=== PATIENT | female | born 1940 | race African-American/Black ===

== ENCOUNTER 2016-10-11 09:49 | Outpatient (CLI) | payer MEDICARE ==
[~2016-10-11] VITALS: Ht 149.9 cm; Wt 39.5 kg
[~2016-10-11 09:49] MED LIST: ALENDRONATE SOD70 MG PO; ARICEPT10 MG PO; DITROPAN X10 MG/BOTT PO; FERROUS SULFAT325 MG PO; PRINIVIL20 MG PO; VITAMIN D250000 UNIT PO
[2016-10-11] MEDS ORDERED: NAMENDA5 MG PO (11:15)
[2016-10-11 11:19] VITALS: BP 142/71; Ht 149.9 cm; Wt 39.5 kg
--- NOTE | 2016-10-11 11:30 | NUR ---
1126-60MG OF PROLIA INJECTION IN RIGHT ARM SUBQ PT TOLERATED WELL LOT# [id number] EXP: 11/28 DISCHARGE INSTRUCTIONS GIVEN AND WENT OVER PT AND DAUGHTER COPY HANDED TO HER WITH A INFORMATION PACKET GIVEN. PT AND DAUGHTER STATE UNDERSTANDING AND DENIES ANY NEED OR CONCERNS AT THIS TIME. PT DISCHARGED HOME IN STBLE CONDITION WITHOUT ANY DISTRESS NOTED
== END 2016-10-11 11:33 | disposition home or self-care (01) ==
LOC: D.OPS 09:49
DX: M81.0 Age-related osteoporosis without current pathological fracture (principal)

== ENCOUNTER → 2017-04-16 11:36 | Outpatient (CLI) | payer MEDICARE ==
[~2017-04-16 11:36] MED LIST changes: +NAMENDA5 MG PO
[2017-04-16 12:54] VITALS: BP 135/70; Ht 149.9 cm
== END | disposition home or self-care (01) ==
LOC: D.OPS 11:36
DX: M81.0 Age-related osteoporosis without current pathological fracture (principal)

== ENCOUNTER 2017-10-16 11:23 | Outpatient (CLI) | payer MEDICARE ==
[~2017-10-16] VITALS: Ht 149.9 cm; Wt 44.5 kg
[2017-10-16 13:08] VITALS: BP 115/49; Ht 149.9 cm; Wt 44.5 kg
== END 2017-10-16 13:15 | disposition home or self-care (01) ==
LOC: D.OPS 11:23
DX: M81.0 Age-related osteoporosis without current pathological fracture (principal)

== ENCOUNTER 2018-05-22 11:48 | Outpatient (CLI) | payer MEDICARE ==
[~2018-05-22] VITALS: Ht 149.9 cm; Wt 40.9 kg
[2018-05-22 12:29] VITALS: BP 179/79; Ht 149.9 cm; Wt 40.9 kg
== END 2018-05-22 12:47 | disposition home or self-care (01) ==
LOC: D.OPS 11:48
DX: M81.0 Age-related osteoporosis without current pathological fracture (principal); Z01.812 Encounter for preprocedural laboratory examination

== ENCOUNTER → 2018-11-04 13:34 | Outpatient (CLI) | payer MEDICARE ==
[~2018-11-04] VITALS: Ht 149.9 cm; Wt 36.4 kg
[2018-11-04 14:37] VITALS: BP 152/71; Ht 149.9 cm; Wt 36.4 kg
== END | disposition home or self-care (01) ==
LOC: D.OPS 13:00
PROVIDERS: ATTEND Family Medicine
DX: M81.0 Age-related osteoporosis without current pathological fracture (principal)

== ENCOUNTER 2019-05-20 13:15 | Outpatient (CLI) | payer MEDICARE ==
[~2019-05-20] VITALS: Ht 121.9 cm; Wt 41.8 kg
[2019-05-20 14:02] VITALS: BP 163/61; Ht 121.9 cm; Wt 41.8 kg
== END 2019-05-20 14:15 | disposition home or self-care (01) ==
LOC: D.OPS 13:15
PROVIDERS: ATTEND Family Medicine
DX: M81.0 Age-related osteoporosis without current pathological fracture (principal)

== ENCOUNTER 2020-01-14 12:36 | Outpatient (CLI) | payer MEDICARE ==
[~2020-01-14] VITALS: Ht 144.8 cm; Wt 36.4 kg
[2020-01-14 13:04] VITALS: BP 197/83; Ht 144.8 cm; Wt 36.4 kg
== END 2020-01-14 13:22 | disposition home or self-care (01) ==
LOC: D.OPS 12:36
PROVIDERS: ATTEND Nurse Practitioner Family
DX: M81.0 Age-related osteoporosis without current pathological fracture (principal)

== ENCOUNTER 2020-01-19 12:12 | Outpatient (CLI) | payer MEDICARE ==
[~2020-01-19] VITALS: Ht 144.8 cm; Wt 38.6 kg
[2020-01-19 12:58] VITALS: Ht 144.8 cm; Wt 38.6 kg
== END 2020-01-19 13:05 | disposition home or self-care (01) ==
LOC: D.OPS 12:12
PROVIDERS: ATTEND Family Medicine
DX: M81.0 Age-related osteoporosis without current pathological fracture (principal)

== ENCOUNTER 2020-03-11 18:34 | Emergency (ER) | payer MEDICARE ==
[~2020-03-11] VITALS: Ht 144.8 cm; Wt 40.4 kg
[2020-03-11 19:05] VITALS: Ht 144.8 cm; Wt 40.4 kg
[2020-03-11 19:47] LABS: BASOPHILS 0.1 % (0-2); EOSINOPHILS 1.3 % (0-7); HEMATOCRIT 37.6 % (36.0-48.0); HEMOGLOBIN 11.6 g/dL (12-16); IMMATURE GRANULOCYTES 0.3 % (0-5); LYMPHOCYTES 9.3 % (15-50); MCH 27.6 pg (26.0-34.0); MCHC 30.9 g/dL (31.0-37.0); MCV 89.3 fL (80.0-100.0); MEAN PLATELET VOLUME 9.1 fL (7.4-10.4); MONOCYTES 7.4 % (2-11); NEUTROPHILS 81.6 % (40-80); PLATELET COUNT 98 10x3/uL (130-400); RBC 4.21 10x6/uL (4.00-5.40); RDW 14.9 % (11.5-14.5); WBC 7.6 10x3/uL (4.8-10.8)
[2020-03-11 20:03] LABS: CALC OSMOLALITY 277 mosm/kg (275-300); CARBON DIOXIDE 31.8 mmol/L (21.0-32.0); CHLORIDE - SERUM 103 mmol/L (98-107); GLUCOSE 99 mg/dL (74-106); POTASSIUM - SERUM 4.2 mmol/L (3.5-5.1); SODIUM 138 mmol/L (136-145); UREA NITROGEN 18 mg/dL (7-18); eGFR NON AFRICAN AMERICAN 56 mL/min (90-120)
[2020-03-11 20:17] LABS: ALBUMIN 3.4 g/dL (3.4-5.0); ALKALINE PHOSPHATASE 59 U/L (30-120); ALT (SGPT) 17 U/L (10-68); BILIRUBIN - TOTAL 0.52 mg/dL (0.2-1.3); THYROID STIMULATING HORMONE 1.26 uIU/mL (0.36-3.74)
[2020-03-11 20:21] LABS: TROPONIN-I < 0.017 ng/mL (0.000-0.060)
[2020-03-11] MEDS ORDERED: BACTRIM DS TAB1 EAC1 PO (21:52)
[2020-03-12 00:15] VITALS: BP 132/69
== END 2020-03-12 00:15 | disposition home or self-care (01) ==
LOC: D.ER 18:34
PROVIDERS: Family Medicine
DX: L03.317 Cellulitis of buttock (principal); L02.31 Cutaneous abscess of buttock; C54.1 Malignant neoplasm of endometrium; I10 Essential (primary) hypertension; F03.90 Unspecified dementia, unspecified severity, without behavioral disturbance, psychotic disturbance, mood disturbance, and anxiety

== ENCOUNTER 2020-04-24 21:29 | Emergency (ER) | payer MEDICARE ==
[~2020-04-24] VITALS: Ht 144.8 cm; Wt 38.6 kg
[~2020-04-24 21:29] MED LIST changes: +BACTRIM DS TAB1 EAC1 PO
[2020-04-24 21:39] VITALS: Ht 144.8 cm; Wt 38.6 kg
[2020-04-24 22:27] LABS: BASOPHILS 0 % (0-2); EOSINOPHILS 0 % (0-7); HEMATOCRIT 39.8 % (36.0-48.0); HEMOGLOBIN 12.6 g/dL (12-16); IMMATURE GRANULOCYTES 0.1 % (0-5); LYMPHOCYTES 18.4 % (15-50); MCH 27.6 pg (26.0-34.0); MCHC 31.7 g/dL (31.0-37.0); MCV 87.3 fL (80.0-100.0); MEAN PLATELET VOLUME 8.8 fL (7.4-10.4); MONOCYTES 8.9 % (2-11); NEUTROPHILS 72.6 % (40-80); RBC 4.56 10x6/uL (4.00-5.40); RDW 14.1 % (11.5-14.5); WBC 7.2 10x3/uL (4.8-10.8)
[2020-04-24 22:28] LABS: PLATELET COUNT 137 10x3/uL (130-400)
[2020-04-24 22:28] LABS: BILIRUBIN NEGATIVE (NEGATIVE); KETONE NEGATIVE (NEGATIVE); NITRITE NEGATIVE (NEGATIVE); UROBILINOGEN NORMAL mg/dL (< 2)
[2020-04-24 22:44] LABS: CALC OSMOLALITY 267 mosm/kg (275-300); CALCIUM 9.8 mg/dL (8.5-10.1); CARBON DIOXIDE 30.2 mmol/L (21.0-32.0); CHLORIDE - SERUM 98 mmol/L (98-107); CREATININE - SERUM 0.9 mg/dL (0.6-1.3); GLUCOSE 116 mg/dL (74-106); SODIUM 132 mmol/L (136-145); UREA NITROGEN 19 mg/dL (7-18); eGFR NON AFRICAN AMERICAN 64 mL/min (90-120)
[2020-04-24 22:48] LABS: ALBUMIN 3.3 g/dL (3.4-5.0); ALKALINE PHOSPHATASE 54 U/L (30-120); ALT (SGPT) 13 U/L (10-68); AMYLASE - SERUM 161 U/L (25-115); BILIRUBIN - TOTAL 0.54 mg/dL (0.2-1.3); LIPASE 84 U/L (73-393); PROTEIN - SERUM 8.9 g/dL (6.4-8.2); TROPONIN-I < 0.017 ng/mL (0.000-0.060)
[2020-04-25 01:11] VITALS: BP 164/91
== END 2020-04-25 01:11 | disposition home or self-care (01) ==
LOC: D.ER 21:29
PROVIDERS: Emergency Medicine
DX: R41.82 Altered mental status, unspecified (principal); E86.0 Dehydration; I10 Essential (primary) hypertension; F03.90 Unspecified dementia, unspecified severity, without behavioral disturbance, psychotic disturbance, mood disturbance, and anxiety

== ENCOUNTER 2020-05-02 22:54 | Inpatient (IN) | payer MEDICARE ==
[~2020-05-02] VITALS: Ht 144.8 cm; Wt 36.3 kg
[2020-05-02 23:40] LABS: BILIRUBIN NEGATIVE (NEGATIVE); KETONE NEGATIVE (NEGATIVE); NITRITE NEGATIVE (NEGATIVE); UROBILINOGEN NORMAL mg/dL (< 2)
[2020-05-02 23:41] LABS: BACTERIA MODERATE HPF (NONE SEEN); EPITHELIAL CELLS 0-5 /hpf (0-5); WHITE CELLS - URINE 0-5 HPF (0-4)
[2020-05-02 23:43] LABS: HEMATOCRIT 45.4 % (36.0-48.0); HEMOGLOBIN 13.6 g/dL (12-16); LYMPHOCYTES 8.6 % (15-50); MCH 26.7 pg (26.0-34.0); MCV 89.2 fL (80.0-100.0); MEAN PLATELET VOLUME 8.9 fL (7.4-10.4); NEUTROPHILS 84.2 % (40-80); RBC 5.09 10x6/uL (4.00-5.40); RDW 14.3 % (11.5-14.5); WBC 11.7 10x3/uL (4.8-10.8)
[2020-05-02 23:48] LABS: PLATELET COUNT 196 10x3/uL (130-400)
[2020-05-02 23:53] LABS: CALC OSMOLALITY 299 mosm/kg (275-300); CALCIUM 11.4 mg/dL (8.5-10.1); CARBON DIOXIDE 33.2 mmol/L (21.0-32.0); CHLORIDE - SERUM 108 mmol/L (98-107); CREATININE - SERUM 1.3 mg/dL (0.6-1.3); GLUCOSE 137 mg/dL (74-106); POTASSIUM - SERUM 3.9 mmol/L (3.5-5.1); SODIUM 145 mmol/L (136-145); UREA NITROGEN 38 mg/dL (7-18); eGFR NON AFRICAN AMERICAN 42 mL/min (90-120)
[2020-05-03] VITALS (8 sets, daily range): BP systolic 136–198; BP diastolic 66–110; Ht 144.8 cm; Wt 36.3 kg
[2020-05-03 00:08] LABS: ALBUMIN 3.4 g/dL (3.4-5.0); ALKALINE PHOSPHATASE 58 U/L (30-120); ALT (SGPT) 13 U/L (10-68); BILIRUBIN - TOTAL 0.45 mg/dL (0.2-1.3); CKMB 0.5 U/L (0.0-3.6); CREATINE KINASE 37 UL (21-215); LIPASE 227 U/L (73-393); PROTEIN - SERUM 9.5 g/dL (6.4-8.2); TROPONIN-I 0.057 ng/mL (0.000-0.060)
--- NOTE | 2020-05-03 04:00 | NUR ---
PATIENT ARRIVED ON THE FLOOR VIA BED FROM ER. NO S/S OF ACUTE DISTRESS. NO C/O AT THIS TIME. PATIENT SHAKES HEAD BACK AND FORTH UPON TOUCH. SHE DOESN'T TALK NOR OPEN HER EYES THOUGH. IV IS IN RIGHT FOREARM, NORMAL SALINE @ 125 ML/HR. IV IS PATENT WITHOUT REDNESS, SWELLING, OR TENDERNESS. PATIENT MOUTH IS MISSING TEETH, SWOLLEN GUMS, AND PATIENT DAUGHTER SAID THAT SHE HAS DUG OUT HER TEETH BEFORE. PATIENT IS INCONTINENT. CALL LIGHT WITHIN REACH. BED ALARM ON. WILL CONTINUE TO MONITOR.
[2020-05-03 05:45] LABS: BASOPHILS 0.1 % (0-2); EOSINOPHILS 0 % (0-7); HEMATOCRIT 43.9 % (36.0-48.0); HEMOGLOBIN 13.4 g/dL (12-16); IMMATURE GRANULOCYTES 0.2 % (0-5); LYMPHOCYTES 7.7 % (15-50); MCH 27.3 pg (26.0-34.0); MCHC 30.5 g/dL (31.0-37.0); MCV 89.4 fL (80.0-100.0); MONOCYTES 7.1 % (2-11); NEUTROPHILS 84.9 % (40-80); PLATELET COUNT 176 10x3/uL (130-400); RBC 4.91 10x6/uL (4.00-5.40); RDW 14.6 % (11.5-14.5); WBC 10.4 10x3/uL (4.8-10.8)
[2020-05-03 07:06] LABS: ALKALINE PHOSPHATASE 57 U/L (30-120); ALT (SGPT) 14 U/L (10-68); BILIRUBIN - TOTAL 0.32 mg/dL (0.2-1.3); CALCIUM 9.9 mg/dL (8.5-10.1); CARBON DIOXIDE 31.8 mmol/L (21.0-32.0); CHLORIDE - SERUM 109 mmol/L (98-107); CKMB 0.9 U/L (0.0-3.6); CREATINE KINASE 41 UL (21-215); GLUCOSE 139 mg/dL (74-106); PROTEIN - SERUM 8.8 g/dL (6.4-8.2); SODIUM 148 mmol/L (136-145); eGFR NON AFRICAN AMERICAN 56 mL/min (90-120)
[2020-05-03 07:30] LABS: CALC OSMOLALITY 301 mosm/kg (275-300); POTASSIUM - SERUM 3.1 mmol/L (3.5-5.1); UREA NITROGEN 28 mg/dL (7-18)
[2020-05-03 07:33] LABS: TROPONIN-I 0.061 ng/mL (0.000-0.060)
--- NOTE | 2020-05-03 07:39 | NUR ---
LAYING IN BED RESTING WITH EYES CLOSED. NO ACUTE DISTRESS NOTED. HR ELEVATED IN 120'S-130'S. CALLED FOR TELEMENTARY BOX AND TOLD NONE ARE AVAILABLE AT THIS TIME. WILL CONTINUE TO MONITOR HEART RATE AND RHYTHMN. NEEDS ANTICIPATED AND MET.
--- NOTE | 2020-05-03 14:08 | MORECARE ---
CASE MANAGEMENT DISCHARGE SUMMARY PATIENT: IRVING ANDERSON UNIT: [id number] ADM DATE: 05/03/20 AGE: 79 : 38 SEX: F ROOM/BED: D.2203 AUTHOR: STEVE BELTRAN PHYSICIAN: REFERRING PHYSICIAN: GLEN CURIEL MD DATE OF SERVICE: 05/03/20 Discharge Plan Patient Name: IRVING ANDERSON [facility] [facility] 1940 Planned Disposition: Home or Self Care Anticipated Discharge Date: Discharge Date: Expected LOS: Initial Reviewer: [email or web address] Initial Review Date: 05/03/2020 Generated: 05/03/20 3:07 pm DCPIA - Discharge Planning Initial Assessment Updated by [email or web address]: Yuridia Santiago on 05/03/20 2:05 pm * Is the patient Alert and Oriented? Yes * PCP RODOLFO SIMMONS * Pharmacy [facility] * Preadmission Environment Home with Family * ADLs Total Dependent * Equipment Other Wheelchair * Other Equipment LIFT 3 MOTOR BED * List name and contact numbers for known caregivers / representatives who currently or will assist patient after discharge: MERLE IBARRA ( DAUGHTER) [phone] * Verbal permission to speak to the caregivers and representatives has been obtained from the patient. N/A * Community resources currently utilized None * Additional services required to return to the preadmission environment? No * Can the patient safely return to the preadmission environment? Yes * Has this patient been hospitalized within the prior 30 days at any hospital? No Patient Name: IRVING ANDERSON Page 88850 at 1408 All edits/amendments must be made on the electronic document DICTATION DATE: 05/03/20 1407 PIECE HAND: CHELSI 05/03/20 1407 RPT#: [id number] DC DATE: STATUS: ADM IN [facility] [address] [place] [address] END OF REPORT
--- NOTE | 2020-05-03 14:18 | MORECARE ---
CASE MANAGEMENT DISCHARGE SUMMARY PATIENT: IRVING ANDERSON UNIT: [id number] ADM DATE: 05/03/20 AGE: 79 : 38 SEX: F ROOM/BED: D.2203 AUTHOR: STEVE BELTRAN PHYSICIAN: REFERRING PHYSICIAN: GLEN CURIEL MD DATE OF SERVICE: 05/03/20 Discharge Plan Patient Name: IRVING ANDERSON Facility: [facility]:[place] : 1940 Planned Disposition: Home or Self Care Anticipated Discharge Date: Discharge Date: Expected LOS: Initial Reviewer: [email or web address] Initial Review Date: 05/03/2020 Generated: 05/03/20 3:17 pm Comments DCP- Discharge Planning Updated by [email or web address]: Yuridia Santiago on 05/03/20 1:[address] Patient Name: IRVING ANDERSON Admission Status: ER Accout number: [id number] Admission Date: 05-03-2020 : 1940 Admission Diagnosis: Attending: GLEN CURIEL Current LOS: 1 Anticipated DC Date: Planned Disposition: Home or Self Care Primary Insurance: MEDICARE A & B Discharge Planning Comments: CM met with patient's daughter to complete initial dc planning assessment. CM educated her on the CM role and verbal consent given by patient to complete assessment. Patient lives at home with her daughter who is her sole child care giver. At discharge patient plans to return home and feels this is a safe discharge. CM discussed availability of home health, rehab services, and medical equipment. Merle, patient's daughter stated that she does everything for her mom. She was feeding herself 3 weeks ago. They have a wheelchair, lift and a 3 motor bed. We spoke about hospice care too, but she stated that she was going to think about and may have questions later. Merle denied known discharge needs at this time. CM will continue to follow and will assist as needed with dc plans/needs. Tomahawk Weapon System Operator: Yuridia Santiago DCPIA - Discharge Planning Initial Assessment Updated by [email or web address]: Yuridia Sanitago on 05/03/20 2:05 pm * Is the patient Alert and Oriented? Yes * PCP RODOLFO SIMMONS * Pharmacy [facility] [address] * Preadmission Environment Home with Family * ADLs Total Dependent * Equipment Other Wheelchair * Other Equipment LIFT 3 MOTOR BED * List name and contact numbers for known caregivers / representatives who currently or will assist patient after discharge: MERLE IBARRA ( DAUGHTER) [phone] * Verbal permission to speak to the caregivers and representatives has been obtained from the patient. N/A * Community resources currently utilized None * Additional services required to return to the preadmission environment? No * Can the patient safely return to the preadmission environment? Yes * Has this patient been hospitalized within the prior 30 days at any hospital? No Last DP export: 05/03/20 1:08 p Patient Name: IRVING ANDERSON Page 57511 at 1418 All edits/amendments must be made on the electronic document DICTATION DATE: 05/03/201416 STATE FIRE MARSHAL: CHELSI 05/03/201416 RPT#: [id number] DC DATE: STATUS: ADM IN [facility] [address] [place] [address] END OF REPORT
[2020-05-04] VITALS: BP 191/73
--- NOTE | 2020-05-04 02:37 | NUR ---
RESTING IN BED NON VERBAL, OPENS EYES AND TURNS SELF IN BED, SEE SHIFT ASSESSMENT CALL LIGHT IN REACH FALL PRECAUTIONS IN PLACE
[2020-05-04 04:00] VITALS: BP 159/84
[2020-05-04 06:21] LABS: BASOPHILS 0.1 % (0-2); EOSINOPHILS 0.1 % (0-7); HEMATOCRIT 42.5 % (36.0-48.0); HEMOGLOBIN 12.9 g/dL (12-16); IMMATURE GRANULOCYTES 0.1 % (0-5); LYMPHOCYTES 11.3 % (15-50); MCH 27.1 pg (26.0-34.0); MCHC 30.4 g/dL (31.0-37.0); MCV 89.3 fL (80.0-100.0); MEAN PLATELET VOLUME 8.5 fL (7.4-10.4); MONOCYTES 7.3 % (2-11); NEUTROPHILS 81.1 % (40-80); PLATELET COUNT 158 10x3/uL (130-400); RBC 4.76 10x6/uL (4.00-5.40); RDW 14.5 % (11.5-14.5); WBC 10.1 10x3/uL (4.8-10.8)
[2020-05-04 06:48] LABS: ANION GAP 9.2 mmol/L (8-16); CALCIUM 8.6 mg/dL (8.5-10.1); CREATININE - SERUM 0.8 mg/dL (0.6-1.3); POTASSIUM - SERUM 3.2 mmol/L (3.5-5.1)
--- NOTE | 2020-05-04 07:30 | NUR ---
REC'D LYING ON LEFT SIDE WITH EYES OPEN. RESP EVEN AND UNLABORED WITH NO DISTRESS NOTED. REMAIN TOTAL CARE WITH ALL CARE PROVIDED VIA STAFF. INCONT OF BOWEL AND BLADDER WITH PERICARE GIVEN PRN AND EVERY TWO HOURS. ASSESSMENT COMPLETED. C/L IN REACH AT BEDSIDE.
[2020-05-04 09:08] VITALS: BP 132/74
[2020-05-04 12:14] VITALS: BP 132/82
--- NOTE | 2020-05-04 12:51 | NUR ---
PATIENT IN BED. FAMILY AT BEDSIDE. EVS IN ROOM CLEANING. FREE FROM SIGNS OF DISTRESS. WILL CONTINUE TO MONITOR THROUGHOUT THE DAY.
[2020-05-04 17:07] VITALS: BP 169/88
--- NOTE | 2020-05-04 19:00 | NUR ---
PATIENT ALERT AND CONFUSED. INCONTINENT OF URINE. BED CHANGE PERFORMED. DAUGHTER AT BEDSIDE. NO PAIN OBSERVED. ASSESSMENT PERFORMED. FALL PRECAUTIONS IN PLACE. CPOC.
[2020-05-05] VITALS: BP 197/83
[2020-05-05 04:00] VITALS: BP 179/83
[2020-05-05 06:32] LABS: BASOPHILS 0 % (0-2); EOSINOPHILS 0.7 % (0-7); HEMATOCRIT 39.6 % (36.0-48.0); HEMOGLOBIN 12.1 g/dL (12-16); IMMATURE GRANULOCYTES 0.1 % (0-5); LYMPHOCYTES 13.5 % (15-50); MCH 26.8 pg (26.0-34.0); MCHC 30.6 g/dL (31.0-37.0); MCV 87.8 fL (80.0-100.0); MEAN PLATELET VOLUME 8.8 fL (7.4-10.4); MONOCYTES 5.2 % (2-11); NEUTROPHILS 80.5 % (40-80); RBC 4.51 10x6/uL (4.00-5.40); RDW 14.4 % (11.5-14.5)
[2020-05-05 06:37] LABS: PLATELET COUNT 122 10x3/uL (130-400); WBC 7.3 10x3/uL (4.8-10.8)
[2020-05-05 07:48] LABS: ALBUMIN 2.6 g/dL (3.4-5.0); ALKALINE PHOSPHATASE 49 U/L (30-120); ALT (SGPT) 20 U/L (10-68); BILIRUBIN - TOTAL 0.37 mg/dL (0.2-1.3); CALC OSMOLALITY 292 mosm/kg (275-300); CALCIUM 7.6 mg/dL (8.5-10.1); CARBON DIOXIDE 28.7 mmol/L (21.0-32.0); CHLORIDE - SERUM 110 mmol/L (98-107); CREATININE - SERUM 0.8 mg/dL (0.6-1.3); GLUCOSE 144 mg/dL (74-106); PROTEIN - SERUM 7.2 g/dL (6.4-8.2); SODIUM 146 mmol/L (136-145); eGFR NON AFRICAN AMERICAN 73 mL/min (90-120)
[2020-05-05 07:50] LABS: UREA NITROGEN 11 mg/dL (7-18)
[2020-05-05 09:25] VITALS: BP 172/83
[2020-05-05 13:10] VITALS: BP 155/76
--- NOTE | 2020-05-05 14:58 | MORECARE ---
CASE MANAGEMENT DISCHARGE SUMMARY PATIENT: IRVING ANDERSON UNIT: [id number] ADM DATE: 05/03/20 AGE: 79 : 38 SEX: F ROOM/BED: D.2203 AUTHOR: STEVE BELTRAN PHYSICIAN: REFERRING PHYSICIAN: GLEN CURIEL MD DATE OF SERVICE: 05/05/20 Discharge Plan Patient Name: IRVING ANDERSON Facility[facility]:[place] : 1940 Planned Disposition: Home or Self Care Anticipated Discharge Date: Discharge Date: Expected LOS: Initial Reviewer: [email or web address] Initial Review Date: 05/03/2020 Generated: 05/05/20 3:58 pm Comments DCP- Discharge Planning Updated by [email or web address]: Yuridia Santiago on 05/05/20 1:[address] I spoke with patient's daughter Merle about hospice. She stated that she wanted to do home hospice and will let me know what company she would like to use. We will visit in the morning about it. DCP- Discharge Planning Updated by [id number]: Yuridia Santiago on 05/03/20 1:[address] Patient Name: IRVING ANDERSON Admission Status: ER Accout number: [id number] Admission Date: 05-03-2020 : 1940 Admission Diagnosis: Attending: GLEN CURIEL Current LOS: 1 Anticipated DC Date: Planned Disposition: Home or Self Care Primary Insurance: MEDICARE A & B Discharge Planning Comments: CM met with patient's daughter to complete initial dc planning assessment. CM educated her on the CM role and verbal consent given by patient to complete assessment. Patient lives at home with her daughter who is her sole adult live in caregiver. At discharge patient plans to return home and feels this is a safe discharge. CM discussed availability of home health, rehab services, and medical equipment. Merle, patient's daughter stated that she does everything for her mom. She was feeding herself 3 weeks ago. They have a wheelchair, lift and a 3 motor bed. We spoke about hospice care too, but she stated that she was going to think about and may have questions later. Merle denied known discharge needs at this time. CM will continue to follow and will assist as needed with dc plans/needs. Oncology Coordinator: Yuridia Santiago DCPIA - Discharge Planning Initial Assessment Updated by [email or web address]: Yuridia Santiago on 05/03/20 2:05 pm * Is the patient Alert and Oriented? Yes * PCP RODOLFO SIMMONS * [facility] [address] * Preadmission Environment Home with Family * ADLs Total Dependent * Equipment Other Wheelchair * Other Equipment LIFT 3 MOTOR BED * List name and contact numbers for known caregivers / representatives who currently or will assist patient after discharge: MERLE IBARRA ( DAUGHTER) [phone] * Verbal permission to speak to the caregivers and representatives has been obtained from the patient. N/A * Community resources currently utilized None * Additional services required to return to the preadmission environment? No * Can the patient safely return to the preadmission environment? Yes * Has this patient been hospitalized within the prior 30 days at any hospital? No Last DP export: 05/03/20 1:18 p Patient Name: IRVING ANDERSON Page 68054 at 1458 All edits/amendments must be made on the electronic document DICTATION DATE: 05/05/201457 COMMUTATOR REPAIRER: CHELSI 05/05/201457 RPT#: [id number] UT DATE: STATUS: ADM IN [facility] [address] [place] [address] END OF REPORT
[2020-05-05 17:48] VITALS: BP 165/77
--- NOTE | 2020-05-05 20:00 | NUR ---
PATIENT RESTING IN BED WITH EYES OPEN LOOKING AROUND. NO S/S OF ACUTE DISTRESS. NO C/O AT THIS TIME. PATIENT IS CONFUSED, ORIENTATED TO SELF ONLY. PATIENT HAS IV IN RIGHT FOREARM, D5NS @ 100 ML/HR. IV IS PATENT WITHOUT REDNESS, SWELLING, OR TENDERNESS. PATIENT IS INCONTINENT AND BEDBOUND. CALL LIGHT WITHIN REACH. BED ALARM ON. WILL CONTINUE TO MONITOR.
--- NOTE | 2020-05-06 03:20 | NUR ---
I have reviewed this patient and I concur with the Shift Assessment completed by the Licensed Practical Nurse today this shift.
[2020-05-06 04:00] VITALS: BP 175/89
[2020-05-06 06:40] LABS: BASOPHILS 0 % (0-2); EOSINOPHILS 0.9 % (0-7); HEMATOCRIT 35.3 % (36.0-48.0); HEMOGLOBIN 11.2 g/dL (12-16); IMMATURE GRANULOCYTES 0.3 % (0-5); LYMPHOCYTES 12.2 % (15-50); MCH 27.3 pg (26.0-34.0); MCHC 31.7 g/dL (31.0-37.0); MCV 86.1 fL (80.0-100.0); MEAN PLATELET VOLUME 9.1 fL (7.4-10.4); MONOCYTES 6.7 % (2-11); NEUTROPHILS 79.9 % (40-80); PLATELET COUNT 100 10x3/uL (130-400); RDW 14.2 % (11.5-14.5); WBC 6.7 10x3/uL (4.8-10.8)
--- NOTE | 2020-05-06 07:30 | NUR ---
REC'D IN BED AWAKE AND ALERT. RESP EVEN AND UNLABORED WITH NO DISTRESS NOTED. CAN EXPRESS SOME NEEDS AND WANTS. INCONT OF B/B WITH PERICARE GIVEN PRN AND Q 2 HRS. ASSESSMENT COMPLETED. DAUGHTER AND C/L IN REACH AT BEDSIDE.
[2020-05-06 07:40] LABS: CARBON DIOXIDE 25.1 mmol/L (21.0-32.0); CHLORIDE - SERUM 108 mmol/L (98-107); CREATININE - SERUM 0.6 mg/dL (0.6-1.3); GLUCOSE 140 mg/dL (74-106); SODIUM 141 mmol/L (136-145); eGFR NON AFRICAN AMERICAN > 90 mL/min (90-120)
[2020-05-06 07:42] LABS: CALC OSMOLALITY 280 mosm/kg (275-300); UREA NITROGEN 7 mg/dL (7-18)
[2020-05-06 07:43] LABS: POTASSIUM - SERUM 2.9 mmol/L (3.5-5.1)
--- NOTE | 2020-05-06 10:24 | NUR ---
CASE MANAGEMENT IN ROOM WITH PATIENT. FAMILY AT BEDSIDE. FREE FROM SIGNS OF DISTRESS. BED LOW POSITION. CALL LIGHT IN REACH. WILL CONTINUE TO MONITOR.
[2020-05-06 10:43] VITALS: BP 158/75
--- NOTE | 2020-05-06 10:58 | MORECARE ---
CASE MANAGEMENT DISCHARGE SUMMARY PATIENT: IRVING ANDERSON UNIT: [id number] ADM DATE: 05/03/20 AGE: 79 : 38 SEX: F ROOM/BED: D.2203 AUTHOR: STEVE BELTRAN PHYSICIAN: REFERRING PHYSICIAN: GLEN CURIEL MD DATE OF SERVICE: 05/06/20 Discharge Plan Patient Name: IRVING ANDERSON Facility: [facility]:[place] : 1940 Planned Disposition: Home or Self Care Anticipated Discharge Date: Discharge Date: Expected LOS: Initial Reviewer: [id number] Initial Review Date: 05/03/2020 Generated: 05/06/20 11:58 am Comments DCP- Discharge Planning Updated by [id number]: Yuridia Santiago on 05/06/20 9:[address] I CALLED EMILY WITH [facility] ASKED ABOUT PEG TUBE FEEDING AND HOSPICE, SHE STATED THAT THEY CAN DO TUBE FEEDINGS THAT WOULD NOT BE A PROBLEM. I SPOKE WITH THE DAUGHTER AND EXPLAINED THAT TO HER AND SHE WOULD LIKE TO SPEAK WITH THEM. JULIOCESAR SIGNED FOR GIUSEPPE. I WILL SEND THE REFERRAL OVER TO THEM AND ALSO CALL DR RENEE AND LET HIM KNOW. DCP- Discharge Planning Updated by [id number]: Yuridia Santiago on 05/05/20 1:[address] I spoke with patient's daughter Merle about hospice. She stated that she wanted to do home hospice and will let me know what company she would like to use. We will visit in the morning about it. DCP- Discharge Planning Updated by [id number]: Yuridia Santiago on 05/03/20 1:[address] Patient Name: IRVING ANDERSON Admission Status: ER Accout number: [id number] Admission Date: 05-03-2020 : 1940 Admission Diagnosis: Attending: GLEN CURIEL Current LOS: 1 Anticipated DC Date: Planned Disposition: Home or Self Care Primary Insurance: MEDICARE A & B Discharge Planning Comments: CM met with patient's daughter to complete initial dc planning assessment. CM educated her on the CM role and verbal consent given by patient to complete assessment. Patient lives at home with her daughter who is her sole healthcare customer service. At discharge patient plans to return home and feels this is a safe discharge. CM discussed availability of home health, rehab services, and medical equipment. Merle, patient's daughter stated that she does everything for her mom. She was feeding herself 3 weeks ago. They have a wheelchair, lift and a 3 motor bed. We spoke about hospice care too, but she stated that she was going to think about and may have questions later. Merle denied known discharge needs at this time. CM will continue to follow and will assist as needed with dc plans/needs. Unhairing Inspector: Yuridia Santiago DCPIA - Discharge Planning Initial Assessment Updated by [id number]: Yuridia Santiago on 05/03/20 2:05 pm * Is the patient Alert and Oriented? Yes * PCP RODOLFO SIMMONS * Pharmacy [facility] [address] * Preadmission Environment Home with Family * ADLs Total Dependent * Equipment Other Wheelchair * Other Equipment LIFT 3 MOTOR BED * List name and contact numbers for known caregivers / representatives who currently or will assist patient after discharge: MERLE IBARRA ( DAUGHTER) [phone] * Verbal permission to speak to the caregivers and representatives has been obtained from the patient. N/A * Community resources currently utilized None * Additional services required to return to the preadmission environment? No * Can the patient safely return to the preadmission environment? Yes * Has this patient been hospitalized within the prior 30 days at any hospital? No Coverage Notice Reviewer: [id number] - Yuridia Santiago Notice Issued Date-Time: 05/06/2020 10:15 Notice Type: Patient Choice Letter Notice Delivered To: Family Member Relationship to Patient: Daughter Chief Drafter Name: MERLE Delivery Method: HAND - Hand Delivered Renetta Days: Prior Verbal Notification: Recipient Understood Notice: Yes Recipient Signature: Yes Med Rec Note Co-signed by Attending: Coverage Notice Comment: JULIOCESAR FOR GIUSEPPE Last DP export: 05/05/20 1:58 p Patient Name: IRVING ANDERSON Page [id number] at 1058 All edits/amendments must be made on the electronic document DICTATION DATE: 05/06/20 1058 ENROLLMENT CLERK: CHELSI 05/06/20 1058 RPT#: [id number] DC DATE: STATUS: ADM IN [facility] [address] [facility] [place] [address] END OF REPORT
[2020-05-06 13:03] VITALS: BP 170/97
--- NOTE | 2020-05-06 13:11 | NUR ---
Nutrition follow-up: Pt out of room for PEG tube placement NPO since admit; unsafe for po intake per speech evaluation Labs reviewed WT: 79# Recommend Jevity 1.2 kristi @ 15 ml/hr with gradual increase to goal rate of 40 ml/hr. When pt is tolerating continuous feeds, may try bolus with Jevity 1.2 kristi 4 cartons per day. Will need to flush with 60 ml H2O q 6 hours to meet est fluid needs. RDN following.
--- NOTE | 2020-05-06 13:37 | MORECARE ---
CASE MANAGEMENT DISCHARGE SUMMARY PATIENT: IRVING ANDERSON UNIT: [id number] ADM DATE: 05/03/20 AGE: 79 : 38 SEX: F ROOM/BED: D.2203 AUTHOR: STEVE BELTRAN PHYSICIAN: REFERRING PHYSICIAN: GLEN CURIEL MD DATE OF SERVICE: 05/06/20 Discharge Plan Patient Name: IRVING ANDERSON Facility: [facility]:[place] : 1940 Planned Disposition: Home or Self Care Anticipated Discharge Date: Discharge Date: Expected LOS: Initial Reviewer: [email or web address] Initial Review Date: 05/03/2020 Generated: 05/06/20 2:37 pm Comments DCP- Discharge Planning Updated by [id number]: Yuridia Santiago on 05/06/20 9:[address] I CALLED EMILY WITH [facility] ASKED ABOUT PEG TUBE FEEDING AND HOSPICE, SHE STATED THAT THEY CAN DO TUBE FEEDINGS THAT WOULD NOT BE A PROBLEM. I SPOKE WITH THE DAUGHTER AND EXPLAINED THAT TO HER AND SHE WOULD LIKE TO SPEAK WITH THEM. JULIOCESAR SIGNED FOR GIUSEPPE. I WILL SEND THE REFERRAL OVER TO THEM AND ALSO CALL DR RENEE AND LET HIM KNOW. DCP- Discharge Planning Updated by [email or web address]: Yuridia Santiago on 05/05/20 1:[address] I spoke with patient's daughter Merle about hospice. She stated that she wanted to do home hospice and will let me know what company she would like to use. We will visit in the morning about it. DCP- Discharge Planning Updated by [id number]: Yuridia Santiago on 05/03/20 1:[address] Patient Name: IRVING ANDERSON Admission Status: ER Accout number: [id number] Admission Date: 05-03-2020 : 1940 Admission Diagnosis: Attending: GLEN CURIEL Current LOS: 1 Anticipated DC Date: Planned Disposition: Home or Self Care Primary Insurance: MEDICARE A & B Discharge Planning Comments: CM met with patient's daughter to complete initial dc planning assessment. CM educated her on the CM role and verbal consent given by patient to complete assessment. Patient lives at home with her daughter who is her sole care center manager. At discharge patient plans to return home and feels this is a safe discharge. CM discussed availability of home health, rehab services, and medical equipment. Merle, patient's daughter stated that she does everything for her mom. She was feeding herself 3 weeks ago. They have a wheelchair, lift and a 3 motor bed. We spoke about hospice care too, but she stated that she was going to think about and may have questions later. Merle denied known discharge needs at this time. CM will continue to follow and will assist as needed with dc plans/needs. Netbackup Admin: Yuridia Santiago DCPIA - Discharge Planning Initial Assessment Updated by [email or web address]: Yuridia Santiago on 05/03/20 2:05 pm * Is the patient Alert and Oriented? Yes * PCP RODOLFO SIMMONS * [facility] [address] * Preadmission Environment Home with Family * ADLs Total Dependent * Equipment Other Wheelchair * Other Equipment LIFT 3 MOTOR BED * List name and contact numbers for known caregivers / representatives who currently or will assist patient after discharge: MERLE IBARRA ( DAUGHTER) [phone] * Verbal permission to speak to the caregivers and representatives has been obtained from the patient. N/A * Community resources currently utilized None * Additional services required to return to the preadmission environment? No * Can the patient safely return to the preadmission environment? Yes * Has this patient been hospitalized within the prior 30 days at any hospital? No External Providers External Provider: [facility] Next Contact Date: Service Request Date: Service Type: Resolution: Reviewer: Comments: Coverage Notice Reviewer: [email or web address] - Yuridia Santiago Notice Issued Date-Time: 05/06/2020 10:15 Notice Type: Patient Choice Letter Notice Delivered To: Family Member Relationship to Patient: Daughter Pumping Plant Operator Name: MERLE Delivery Method: HAND - Hand Delivered Renetta Days: Prior Verbal Notification: Recipient Understood Notice: Yes Recipient Signature: Yes Med Rec Note Co-signed by Attending: Coverage Notice Comment: JULIOCESAR Gunderson DP export: 05/06/20 9:58 a Patient Name: IRVING ANDERSON Page [id number] at 1337 All edits/amendments must be made on the electronic document DICTATION DATE: 05/06/201336 BACK TENDER CYLINDER: CHELSI 05/06/201336 RPT#: [id number] DC DATE: STATUS: ADM IN [facility] [address] [place] [address] END OF REPORT
--- NOTE | 2020-05-06 13:49 | MORECARE ---
CASE MANAGEMENT DISCHARGE SUMMARY PATIENT: IRVING ANDERSON UNIT: [id number] ADM DATE: 05/03/20 AGE: 79 : 38 SEX: F ROOM/BED: D.2203 AUTHOR: STEVE BELTRAN PHYSICIAN: REFERRING PHYSICIAN: GLEN CURIEL MD DATE OF SERVICE: 05/06/20 Discharge Plan Patient Name: IRVING ANDERSON Facility: [facility]:[place] : 1940 Planned Disposition: Home or Self Care Anticipated Discharge Date: Discharge Date: Expected LOS: Initial Reviewer: [email or web address] Initial Review Date: 05/03/2020 Generated: 05/06/20 2:48 pm Comments DCP- Discharge Planning Updated by [email or web address]: Yuridia Santiago on 05/06/20 9:[address] I CALLED EMILY WITH [facility] ASKED ABOUT PEG TUBE FEEDING AND HOSPICE, SHE STATED THAT THEY CAN DO TUBE FEEDINGS THAT WOULD NOT BE A PROBLEM. I SPOKE WITH THE DAUGHTER AND EXPLAINED THAT TO HER AND SHE WOULD LIKE TO SPEAK WITH THEM. JULIOCESAR SIGNED FOR [facility]. I WILL SEND THE REFERRAL OVER TO THEM AND ALSO CALL DR RENEE AND LET HIM KNOW. DCP- Discharge Planning Updated by [email or web address]: Yuridia Santiago on 05/05/20 1:[address] I spoke with patient's daughter Merle about hospice. She stated that she wanted to do home hospice and will let me know what company she would like to use. We will visit in the morning about it. DCP- Discharge Planning Updated by [id number]: Yuridia Santiago on 05/03/20 1:[address] Patient Name: IRVING ANDERSON Admission Status: ER Accout number: [id number] Admission Date: 05-03-2020 : 1940 Admission Diagnosis: Attending: GLEN CURIEL Current LOS: 1 Anticipated DC Date: Planned Disposition: Home or Self Care Primary Insurance: MEDICARE A & B Discharge Planning Comments: CM met with patient's daughter to complete initial dc planning assessment. CM educated her on the CM role and verbal consent given by patient to complete assessment. Patient lives at home with her daughter who is her sole personal care aid. At discharge patient plans to return home and feels this is a safe discharge. CM discussed availability of home health, rehab services, and medical equipment. Merle, patient's daughter stated that she does everything for her mom. She was feeding herself 3 weeks ago. They have a wheelchair, lift and a 3 motor bed. We spoke about hospice care too, but she stated that she was going to think about and may have questions later. Merle denied known discharge needs at this time. CM will continue to follow and will assist as needed with dc plans/needs. Steam And Power Supervisor: Yuridia Santiago DCPIA - Discharge Planning Initial Assessment Updated by [id number]: Yuridia Santiago on 05/03/20 2:05 pm * Is the patient Alert and Oriented? Yes * PCP RODOLFO SIMMONS * [facility] [address] * Preadmission Environment Home with Family * ADLs Total Dependent * Equipment Other Wheelchair * Other Equipment LIFT 3 MOTOR BED * List name and contact numbers for known caregivers / representatives who currently or will assist patient after discharge: MERLE IBARRA ( DAUGHTER) [phone] * Verbal permission to speak to the caregivers and representatives has been obtained from the patient. N/A * Community resources currently utilized None * Additional services required to return to the preadmission environment? No * Can the patient safely return to the preadmission environment? Yes * Has this patient been hospitalized within the prior 30 days at any hospital? No External Providers External Provider: [facility] Next Contact Date: Service Request Date: Service Type: Resolution: Reviewer: Comments: Coverage Notice Reviewer: [id number] - Yuridia Santiago Notice Issued Date-Time: 05/06/2020 10:15 Notice Type: Patient Choice Letter Notice Delivered To: Family Member Relationship to Patient: Daughter Compressor Station Engineer Chief Name: MERLE Delivery Method: HAND - Hand Delivered Renetta Days: Prior Verbal Notification: Recipient Understood Notice: Yes Recipient Signature: Yes Med Rec Note Co-signed by Attending: Coverage Notice Comment: JULIOCESAR Gunderson DP export: 05/06/20 9:58 a Patient Name: IRVING ANDERSON Page [phone] at 1349 All edits/amendments must be made on the electronic document DICTATION DATE: 05/06/201347 DIRECTOR OF ACADEMIC: CHELSI 05/06/20 134 RPT#: [id number] DC DATE: STATUS: ADM IN [facility] [address] [place] [address] END OF REPORT
[2020-05-06 17:22] VITALS: BP 187/99
--- NOTE | 2020-05-06 20:00 | NUR ---
PATEINT RESTING IN BED WITH DAUGHTER AT BEDSIDE. NO S/S OF ACUTE DISTRESS. NO C/O AT THIS TIME. PATIENT AROUSES TO VOICE, AND CAN ANSWER SIMPLE QUESTIONS. PATIENT HAS IV IN RIGHT FOREARM, D5NS @ 100 ML/HR. IV IS PATENT WITHOUT REDNESS, SWELLING, OR TENDERNESS. PATIENT IS BEDRIDDEN. PATEINT IS INCONTINENT OF BOWEL AND BLADDER. CALL LIGHT WITHIN REACH. BED ALARM ON. WILL CONTINUE TO MONITOR.
[2020-05-06 21:08] VITALS: BP 161/50
[2020-05-07] VITALS (7 sets, daily range): BP systolic 122–164; BP diastolic 50–92
--- NOTE | 2020-05-07 01:52 | NUR ---
I have reviewed this patient and I concur with the Shift Assessment completed by the Licensed Practical Nurse today this shift.
[2020-05-07 06:13] LABS: ALBUMIN 2.3 g/dL (3.4-5.0); CALC OSMOLALITY 275 mosm/kg (275-300); CHLORIDE - SERUM 106 mmol/L (98-107); CREATININE - SERUM 0.6 mg/dL (0.6-1.3); GLUCOSE 140 mg/dL (74-106); MAGNESIUM - SERUM 1.3 mg/dL (1.8-2.4); PRE-ALBUMIN 13.4 mg/dL (18.0-35.7); SODIUM 138 mmol/L (136-145); UREA NITROGEN 6 mg/dL (7-18); eGFR NON AFRICAN AMERICAN > 90 mL/min (90-120)
[2020-05-07 06:21] LABS: CALCIUM 6.7 mg/dL (8.5-10.1); PHOSPHOROUS 0.9 mg/dL (2.5-4.9); POTASSIUM - SERUM 2.9 mmol/L (3.5-5.1)
--- NOTE | 2020-05-07 15:18 | OP ---
PATIENT NAME: IRVING ANDERSON MEDICAL RECORD: [id number] :36 LOCATION:D.MS [facility] ADMISSION DATE:05/03/20 SURGEON: MICHAEL SELLERS MD DATE OF OPERATION: 05/07/2020 PREOPERATIVE DIAGNOSES: 1. Dehydration. 2. Failed swallowing study. 3. Dysphagia. 4. Dementia. 5. Weight loss. POSTOPERATIVE DIAGNOSES: 1. Dehydration. 2. Failed swallowing study. 3. Dysphagia. 4. Dementia. 5. Weight loss. 6. Thick secretions in the hypopharynx, colon-nodular gastritis, duodenal bulbar erosions. PROCEDURES: 1. Esophagogastroduodenoscopy with antral biopsies to rule out Helicobacter pylori. 2. Percutaneous endoscopic gastrostomy tube placement, 20-Eritrean. SURGEON: Michael Sellers MD AUDIO SPECIALIST: None. BLOOD LOSS: Minimal. ANESTHESIA: Local with IV sedation. COMPLICATIONS: None. The risks, possible complications and alternatives to the procedure were explained to the patient. She elects to proceed. The discussion specifically included, but was not limited to, bleeding requiring emergency reoperation, early dislodgement of the feeding tube. A consent form was signed. After the procedure, I was unable to locate any relatives. ENDOSCOPIC COURSE: The patient was conveyed to endoscopy suite electively on 05/07/2020. IV sedation was induced by the anesthesia staff. The patient was positioned in the reverse Trendelenburg position. The abdomen was sterilely prepped and draped. The patient had a very thin abdominal wall. A bite block was inserted. A gastroscope was inserted into the mouth. It was advanced easily into the hypopharynx. The esophagus was easily intubated as were the stomach and duodenum. Upon withdrawal, retroflexed and angulus views were obtained. Antral biopsies were obtained to rule out H. pylori. The abdominal prep was with Betadine. I was able to transilluminate the abdomen OPERATIVE REPORT [id number] IRVING ANDERSON quite easily. I chose an area for insertion of the gastrostomy tube in the periumbilical area to the left. This area was infiltrated with a local anesthetic. A skin incision was accomplished. I then punctured the fundus of the stomach on the first try. Through the Angiocath type catheter, I advanced a wire. This was grasped with an endoscopic snare. The gastroscope and the wire were then withdrawn out through the mouth. The wire was attached to a pull-type gastrostomy tube, which was then pulled into place. I then re-endoscoped the patient's esophagus and stomach. The gastrostomy tube appeared to be well positioned, it was shortened. Hub and flange devices were attached. The gastroscope was then withdrawn. An abdominal binder was applied in order to help prevent the patient from pulling out her gastrostomy tube. She was conveyed back to her room. We can begin using the gastrostomy tube for tube feedings tomorrow. TRANSINT:[id number] Voice Confirmation ID: [id number] DOCUMENT ID: [id number] MICHAEL SELLERS MD at 1518 CC: GLEN CURIEL [id number] DICTATION DATE: 05/07/20 1331 ENGINEER THIRD ASSISTANT: 05/07/20 1455 ADM IN [facility] [address] [id number]
--- NOTE | 2020-05-07 20:00 | NUR ---
RESTING IN BED EYES CLOSED, AROUSED EASILY TO TOUCH, ABD BINDER IN PLACE OVER PEG TUBE, SEE SHIFT ASSESSMENT, DR SELLERS CALLED STATES MAY USE PEG TUBE FOR MEDS AND FLUSHES, NOT TO PUT TO GRAVITY DRAINAGE DUE TO PT PRONE TO PULLING AT THINGS
[2020-05-08 04:00] VITALS: BP 144/69
[2020-05-08 06:41] LABS: CALC OSMOLALITY 270 mosm/kg (275-300); CARBON DIOXIDE 23.8 mmol/L (21.0-32.0); CHLORIDE - SERUM 104 mmol/L (98-107); CREATININE - SERUM 0.7 mg/dL (0.6-1.3); GLUCOSE 137 mg/dL (74-106); SODIUM 136 mmol/L (136-145); UREA NITROGEN 5 mg/dL (7-18); eGFR NON AFRICAN AMERICAN 85 mL/min (90-120)
[2020-05-08 06:43] LABS: MAGNESIUM - SERUM 1.9 mg/dL (1.8-2.4); PHOSPHOROUS 1.6 mg/dL (2.5-4.9)
[2020-05-08 06:44] LABS: CALCIUM 6.3 mg/dL (8.5-10.1); POTASSIUM - SERUM 2.5 mmol/L (3.5-5.1)
[2020-05-08 08:00] VITALS: BP 136/87
[2020-05-08 12:16] VITALS: BP 95/78
--- NOTE | 2020-05-08 12:20 | NUR ---
Nutrition consult for TF: Received order from Dr. Chang to begin TF today via PEG tube. Labs reviewed; K, PO4 already low. Wt: 79# Pt with very high risk for refeeding syndrome. Monitor K, Mg, PO4 very closely and replace as needed. Recommend checking Mg, PO4, K TID until discharge. RDN following.
--- NOTE | 2020-05-08 14:52 | NUR ---
JEVITY 1.2 TUBE FEEDS STARTED. DRIP RATE 1 DRIP/15 SECONDS PER ORDERS. WILL CONTINUE TO MONITOR
[2020-05-08 15:00] VITALS: BP 122/73
--- NOTE | 2020-05-08 19:33 | NUR ---
RESIDUAL CHECK COMPLETE. 0ML
[2020-05-08 20:00] VITALS: BP 124/69
[2020-05-09] VITALS: BP 142/58
[2020-05-09 04:00] VITALS: BP 156/60
[2020-05-09 06:16] LABS: CALC OSMOLALITY 280 mosm/kg (275-300); CARBON DIOXIDE 24.7 mmol/L (21.0-32.0); CHLORIDE - SERUM 109 mmol/L (98-107); CREATININE - SERUM 0.6 mg/dL (0.6-1.3); GLUCOSE 125 mg/dL (74-106); MAGNESIUM - SERUM 1.7 mg/dL (1.8-2.4); PHOSPHOROUS 1.7 mg/dL (2.5-4.9); POTASSIUM - SERUM 3.1 mmol/L (3.5-5.1); SODIUM 142 mmol/L (136-145); UREA NITROGEN 5 mg/dL (7-18); eGFR NON AFRICAN AMERICAN > 90 mL/min (90-120)
[2020-05-09 07:24] LABS: CALCIUM 6.4 mg/dL (8.5-10.1)
[2020-05-09 08:13] VITALS: BP 110/50
[2020-05-09 12:04] VITALS: BP 139/95
--- NOTE | 2020-05-09 13:12 | NUR ---
LYING IN BED,WITHOUT DISTRESS. FAMILY AT BEDSIDE
[2020-05-09 20:00] VITALS: BP 163/70
[2020-05-10 00:10] VITALS: BP 147/72
[2020-05-10 04:00] VITALS: BP 157/81
[2020-05-10 06:53] LABS: CALC OSMOLALITY 287 mosm/kg (275-300); CALCIUM 7.5 mg/dL (8.5-10.1); CARBON DIOXIDE 22.9 mmol/L (21.0-32.0); CHLORIDE - SERUM 111 mmol/L (98-107); CREATININE - SERUM 0.7 mg/dL (0.6-1.3); GLUCOSE 145 mg/dL (74-106); MAGNESIUM - SERUM 1.5 mg/dL (1.8-2.4); PHOSPHOROUS 1.6 mg/dL (2.5-4.9); SODIUM 144 mmol/L (136-145); UREA NITROGEN 6 mg/dL (7-18); eGFR NON AFRICAN AMERICAN 85 mL/min (90-120)
[2020-05-10 07:00] LABS: POTASSIUM - SERUM 2.8 mmol/L (3.5-5.1)
[2020-05-10 08:58] VITALS: BP 163/66
--- NOTE | 2020-05-10 10:49 | NUR ---
0700 BEDSIDE REPORT RECEIVED ASSESSMENT COMPLETE CHANGED SOILED LINENS LIQUID STOOL
--- NOTE | 2020-05-10 10:51 | NUR ---
0700 K LEVEL CRITICAL 2.8 INITIATED REPLACEMENT K PER ELECTROLYTE PROTOCOL
[2020-05-10 12:03] VITALS: BP 167/61
[2020-05-10 15:04] LABS: CALC OSMOLALITY 281 mosm/kg (275-300); CALCIUM 7.6 mg/dL (8.5-10.1); CARBON DIOXIDE 26.1 mmol/L (21.0-32.0); CHLORIDE - SERUM 113 mmol/L (98-107); CREATININE - SERUM 0.7 mg/dL (0.6-1.3); GLUCOSE 128 mg/dL (74-106); SODIUM 142 mmol/L (136-145); UREA NITROGEN 5 mg/dL (7-18); eGFR NON AFRICAN AMERICAN 85 mL/min (90-120)
[2020-05-10 15:05] LABS: POTASSIUM - SERUM 4.7 mmol/L (3.5-5.1)
--- NOTE | 2020-05-10 15:21 | NUR ---
Nutrition follow-up: Spoke with pts family; no issues reported pt wtih Jevity 1.2 kristi infusing via gravity drip @ 40 ml/hr; pt currently tolerating. Labs reviewed; K continues to be low; being replaced Wt: 79# RDN following.
[2020-05-10 18:09] VITALS: BP 152/90
[2020-05-11 04:00] VITALS: BP 156/92
[2020-05-11 06:28] LABS: BASOPHILS 0.1 % (0-2); EOSINOPHILS 0.4 % (0-7); HEMATOCRIT 29.9 % (36.0-48.0); HEMOGLOBIN 9.7 g/dL (12-16); IMMATURE GRANULOCYTES 0.1 % (0-5); LYMPHOCYTES 8.8 % (15-50); MCH 27.1 pg (26.0-34.0); MCHC 32.4 g/dL (31.0-37.0); MCV 83.5 fL (80.0-100.0); MEAN PLATELET VOLUME 8.8 fL (7.4-10.4); MONOCYTES 5.7 % (2-11); NEUTROPHILS 84.9 % (40-80); RBC 3.58 10x6/uL (4.00-5.40); RDW 15.4 % (11.5-14.5)
[2020-05-11 06:44] LABS: PLATELET COUNT 147 10x3/uL (130-400)
[2020-05-11 07:14] LABS: CALC OSMOLALITY 282 mosm/kg (275-300); CARBON DIOXIDE 25.5 mmol/L (21.0-32.0); CHLORIDE - SERUM 112 mmol/L (98-107); CREATININE - SERUM 0.6 mg/dL (0.6-1.3); GLUCOSE 139 mg/dL (74-106); SODIUM 142 mmol/L (136-145); UREA NITROGEN 6 mg/dL (7-18); eGFR NON AFRICAN AMERICAN > 90 mL/min (90-120)
[2020-05-11 07:22] LABS: POTASSIUM - SERUM 5.2 mmol/L (3.5-5.1)
[2020-05-11] MEDS ORDERED: CARDIZEM30 MG PEG (07:52)
[2020-05-11] MEDS ORDERED: CATAPRES TTS-20.2 MG TRANSDERM (07:52)
[2020-05-11] MEDS ORDERED: MIRALAX17 GM PEG (07:54)
[2020-05-11] MEDS ORDERED: K-DUR20 MEQ PEG (08:03)
--- NOTE | 2020-05-11 08:28 | MORECARE ---
CASE MANAGEMENT DISCHARGE SUMMARY PATIENT: IRVING ANDERSON UNIT: [id number] ADM DATE: 05/03/20 AGE: 79 : 38 SEX: F ROOM/BED: D.2203 AUTHOR: STEVE BELTRAN PHYSICIAN: REFERRING PHYSICIAN: GLEN CURIEL MD DATE OF SERVICE: 05/11/20 Discharge Plan Patient Name: IRVING ANDERSON Facility: [facility]:[place] : 1940 Planned Disposition: Home or Self Care Anticipated Discharge Date: Discharge Date: Expected LOS: Initial Reviewer: [id number] Initial Review Date: 05/03/2020 Generated: 05/11/20 9:28 am Comments DCP- Discharge Planning Updated by [id number]: Yuridia Santiago on 05/11/20 7:[address] PATIENT WILL BE DISCHARGING HOME TO [facility] TODAY VIA EMS. I HAVE FAXED EVERYTHING TO EMILY AND SPOKE WITH HER. THEY HAVE BEEN INTOUCH WITH THE MERLE THE PATIENTS DAUGHTER. I WILL CALL MERLE AND SPEAK WITH HER ABOUT THE DC TODAY. CM TO FOLLOW AND ASSIST NEEDED DCP- Discharge Planning Updated by [email or web address]: Yuridia Santiago on 05/06/20 9:[address] I CALLED EMILY WITH [facility] ASKED ABOUT PEG TUBE FEEDING AND HOSPICE, SHE STATED THAT THEY CAN DO TUBE FEEDINGS THAT WOULD NOT BE A PROBLEM. I SPOKE WITH THE DAUGHTER AND EXPLAINED THAT TO HER AND SHE WOULD LIKE TO SPEAK WITH THEM. JULIOCESAR SIGNED FOR [facility]. I WILL SEND THE REFERRAL OVER TO THEM AND ALSO CALL DR RENEE AND LET HIM KNOW. DCP- Discharge Planning Updated by [id number]: Yuridia Santiago on 05/05/20 1:[address] I spoke with patient's daughter Merle about hospice. She stated that she wanted to do home hospice and will let me know what company she would like to use. We will visit in the morning about it. DCP- Discharge Planning Updated by [id number]: Yuridia Santiago on 05/03/20 1:[address] Patient Name: IRVING ANDERSON Admission Status: ER Accout number: [id number] Admission Date: 05-03-2020 : 1940 Admission Diagnosis: Attending: GLEN CURIEL Current LOS: 1 Anticipated DC Date: Planned Disposition: Home or Self Care Primary Insurance: MEDICARE A & B Discharge Planning Comments: CM met with patient's daughter to complete initial dc planning assessment. CM educated her on the CM role and verbal consent given by patient to complete assessment. Patient lives at home with her daughter who is her sole health care coach. At discharge patient plans to return home and feels this is a safe discharge. CM discussed availability of home health, rehab services, and medical equipment. Merle, patient's daughter stated that she does everything for her mom. She was feeding herself 3 weeks ago. They have a wheelchair, lift and a 3 motor bed. We spoke about hospice care too, but she stated that she was going to think about and may have questions later. Merle denied known discharge needs at this time. CM will continue to follow and will assist as needed with dc plans/needs. Arcgis Developer: Yuridia Santiago DCPIA - Discharge Planning Initial Assessment Updated by [id number]: Yuridia Santiago on 05/03/20 2:05 pm * Is the patient Alert and Oriented? Yes * PCP RODOLFO SIMMONS * [facility] * Preadmission Environment Home with Family * ADLs Total Dependent * Equipment Other Wheelchair * Other Equipment LIFT 3 MOTOR BED * List name and contact numbers for known caregivers / representatives who currently or will assist patient after discharge: MERLE IBARRA ( DAUGHTER) [phone] * Verbal permission to speak to the caregivers and representatives has been obtained from the patient. N/A * Community resources currently utilized None * Additional services required to return to the preadmission environment? No * Can the patient safely return to the preadmission environment? Yes * Has this patient been hospitalized within the prior 30 days at any hospital? No Coverage Notice Reviewer: [id number] - Yuridia Santiago Notice Issued Date-Time: 05/06/2020 10:15 Notice Type: Patient Choice Letter Notice Delivered To: Family Member Relationship to Patient: Daughter Polymerization Helper Name: MERLE Delivery Method: HAND - Hand Delivered Renetta Days: Prior Verbal Notification: Recipient Understood Notice: Yes Recipient Signature: Yes Med Rec Note Co-signed by Attending: Coverage Notice Comment: JULIOCESAR FOR GIUSEPPE Gunderson DP export: 05/06/20 12:49 p Patient Name: IRVING ANDERSON Page [id number] at 0828 All edits/amendments must be made on the electronic document DICTATION DATE: 05/11/20827 TILER'S ASSISTANT: CHELSI 05/11/20827 RPT#: [id number] DC DATE: STATUS: ADM IN [facility] [address] [place] [address] END OF REPORT
[2020-05-11 09:21] VITALS: BP 163/80
--- NOTE | 2020-05-11 10:30 | NUR ---
REMOVED IV FROM RIGHT HAND WITH CATH TIP INTACT. DUE TO LEAKING. PATIENT IN BED WITH NO PROBLEMS. GIVEN TYLENOL FOR TEETH AND LEG PAIN. RIGHT AC IF STILL INTACT. CALL LIGHT WITHIN REACH.
--- NOTE | 2020-05-11 11:40 | NUR ---
PATIENT DAUGHTER SIGNED DC PAPERS. VERBALIZED UNDERSTANDING. NO QUESTIONS AT THIS TIME. HOSPICE TO MEET PATIENT AND DAUGHTER AT HOME. IV TO RIGHT AC REMOVED. PATIENT DRESSED AND READY FOR AMBULANCE TO TRANSFER HOME.
--- NOTE | 2020-05-11 12:35 | MORECARE ---
CASE MANAGEMENT DISCHARGE SUMMARY PATIENT: IRVING ANDERSON UNIT: [id number] ADM DATE: 05/03/20 AGE: 79 : 38 SEX: F ROOM/BED: D.2203 AUTHOR: STEVE BELTRAN PHYSICIAN: REFERRING PHYSICIAN: GLEN CURIEL MD DATE OF SERVICE: 05/11/20 Discharge Plan Patient Name: IRVING ANDERSON Facility: [facility]:[place] : 1940 Planned Disposition: Home or Self Care Anticipated Discharge Date: Discharge Date: Expected LOS: Initial Reviewer: [email or web address] Initial Review Date: 05/03/2020 Generated: 05/11/20 1:35 pm Comments DCP- Discharge Planning Updated by [id number]: Yuridia Santiago on 05/11/20 11:[address] Merle here for discharge instructions, IMM signed ambulance called and [facility] notified. PT to dc home via EMS to hospice at home. DCP- Discharge Planning Updated by [email or web address]: Yuridia Santiago on 05/11/20 7:[address] PATIENT WILL BE DISCHARGING HOME TO [facility] TODAY VIA EMS. I HAVE FAXED EVERYTHING TO EMILY AND SPOKE WITH HER. THEY HAVE BEEN INTOUCH WITH THE MERLE THE PATIENTS DAUGHTER. I WILL CALL MERLE AND SPEAK WITH HER ABOUT THE DC TODAY. CM TO FOLLOW AND ASSIST NEEDED DCP- Discharge Planning Updated by [id number]: Yuridia Santiago on 05/06/20 9:[address] I CALLED EMILY WITH [facility] ASKED ABOUT PEG TUBE FEEDING AND HOSPICE, SHE STATED THAT THEY CAN DO TUBE FEEDINGS THAT WOULD NOT BE A PROBLEM. I SPOKE WITH THE DAUGHTER AND EXPLAINED THAT TO HER AND SHE WOULD LIKE TO SPEAK WITH THEM. JULIOCESAR SIGNED FOR [facility]. I WILL SEND THE REFERRAL OVER TO THEM AND ALSO CALL DR RENEE AND LET HIM KNOW. DCP- Discharge Planning Updated by [id number]: Yuridia Santiago on 05/05/20 1:[address] I spoke with patient's daughter Merle about hospice. She stated that she wanted to do home hospice and will let me know what company she would like to use. We will visit in the morning about it. DCP- Discharge Planning Updated by [email or web address]: Yuridia Santiago on 05/03/20 1:[address] Patient Name: IRVING ANDERSON Admission Status: ER Accout number: [id number] Admission Date: 05-03-2020 : 1940 Admission Diagnosis: Attending: GLEN CURIEL Current LOS: 1 Anticipated DC Date: Planned Disposition: Home or Self Care Primary Insurance: MEDICARE A & B Discharge Planning Comments: CM met with patient's daughter to complete initial dc planning assessment. CM educated her on the CM role and verbal consent given by patient to complete assessment. Patient lives at home with her daughter who is her sole director of health care marketing. At discharge patient plans to return home and feels this is a safe discharge. CM discussed availability of home health, rehab services, and medical equipment. Merle, patient's daughter stated that she does everything for her mom. She was feeding herself 3 weeks ago. They have a wheelchair, lift and a 3 motor bed. We spoke about hospice care too, but she stated that she was going to think about and may have questions later. Merle denied known discharge needs at this time. CM will continue to follow and will assist as needed with dc plans/needs. Life Enrichment Assistant: Yuridia Santiago DCPIA - Discharge Planning Initial Assessment Updated by [id number]: Yuridia Santiago on 05/03/20 2:05 pm * Is the patient Alert and Oriented? Yes * PCP RODOLFO SIMMONS * [facility] * Preadmission Environment Home with Family * ADLs Total Dependent * Equipment Other Wheelchair * Other Equipment LIFT 3 MOTOR BED * List name and contact numbers for known caregivers / representatives who currently or will assist patient after discharge: MERLE IBARRA ( DAUGHTER) [phone] * Verbal permission to speak to the caregivers and representatives has been obtained from the patient. N/A * Community resources currently utilized None * Additional services required to return to the preadmission environment? No * Can the patient safely return to the preadmission environment? Yes * Has this patient been hospitalized within the prior 30 days at any hospital? No Coverage Notice Reviewer: [id number] - Yuridia Santiago Notice Issued Date-Time: 05/06/2020 10:15 Notice Type: Patient Choice Letter Notice Delivered To: Family Member Relationship to Patient: Daughter Moose Hunter Name: MERLE Delivery Method: HAND - Hand Delivered Renetta Days: Prior Verbal Notification: Recipient Understood Notice: Yes Recipient Signature: Yes Med Rec Note Co-signed by Attending: Coverage Notice Comment: JULIOCESAR CHIN Reviewer: [email or web address] Sher Santiago Notice Issued Date-Time: 05/11/2020 12:25 Notice Type: IM Discharge Notice Notice Delivered To: Family Member Relationship to Patient: Daughter Moose Hunter Name: merle Delivery Method: HAND - Hand Delivered Renetta Days: Prior Verbal Notification: Recipient Understood Notice: Yes Recipient Signature: Yes Med Rec Note Co-signed by Attending: Coverage Notice Comment: Last DP export: 05/11/20 7:28 a Patient Name: IRVING ANDERSON Page [phone] at 1235 All edits/amendments must be made on the electronic document DICTATION DATE: 05/11/20 1235 JUNIOR ASSISTANT MANAGER: CHELSI 05/11/20 1235 RPT#: [id number] DC DATE: STATUS: ADM IN [facility] [address] [place] [address] END OF REPORT
[2020-05-11 12:38] VITALS: BP 168/90
--- NOTE | 2020-05-12 06:50 | MORECARE ---
CASE MANAGEMENT DISCHARGE SUMMARY PATIENT: IRVING ANDERSON UNIT: [id number] ADM DATE: 05/03/20 AGE: 79 : 36 SEX: F ROOM/BED: D.2203 AUTHOR: STEVE BELTRAN PHYSICIAN: REFERRING PHYSICIAN: GLEN CURIEL MD DATE OF SERVICE: 05/12/20 Discharge Plan Patient Name: IRVING ANDERSON Facility: [facility]:[place] : 1940 Planned Disposition: Home or Self Care Anticipated Discharge Date: Discharge Date: 05/11/2020 Expected LOS: Initial Reviewer: [id number] Initial Review Date: 05/03/2020 Generated: 05/12/20 7:49 am Comments DCP- Discharge Planning Updated by [email or web address]: Yuridia Santiago on 05/11/20 11:[address] Merle here for discharge instructions, IMM signed ambulance called and [facility] notified. PT to dc home via EMS to hospice at home. DCP- Discharge Planning Updated by [email or web address]: Yuridia Santiago on 05/11/20 7:[address] PATIENT WILL BE DISCHARGING HOME TO [facility] TODAY VIA EMS. I HAVE FAXED EVERYTHING TO EMILY AND SPOKE WITH HER. THEY HAVE BEEN INTOUCH WITH THE MERLE THE PATIENTS DAUGHTER. I WILL CALL MERLE AND SPEAK WITH HER ABOUT THE DC TODAY. CM TO FOLLOW AND ASSIST NEEDED DCP- Discharge Planning Updated by [id number]: Yuridia Santiago on 05/06/20 9:[address] I CALLED EMILY WITH [facility] ASKED ABOUT [facility]OSP[facility], SHE STATED THAT THEY CAN DO TUBE FEEDINGS THAT WOULD NOT BE A PROBLEM. I SPOKE WITH THE DAUGHTER AND EXPLAINED THAT TO HER AND SHE WOULD LIKE TO SPEAK WITH THEM. JULIOCESAR SIGNED FOR [facility]. I WILL SEND THE REFERRAL OVER TO THEM AND ALSO CALL DR RENEE AND LET HIM KNOW. DCP- Discharge Planning Updated by [email or web address]: Yuridia Santiago on 05/05/20 1:[address] I spoke with patient's daughter Merle about hospice. She stated that she wanted to do home hospice and will let me know what company she would like to use. We will visit in the morning about it. DCP- Discharge Planning Updated by [id number]: Yuridia Santiago on 05/03/20 1:[address] Patient Name: IRVING ANDERSON Admission Status: ER Accout number: [id number] Admission Date: 05-03-2020 : 1940 Admission Diagnosis: Attending: GLEN CURIEL Current LOS: 1 Anticipated DC Date: Planned Disposition: Home or Self Care Primary Insurance: MEDICARE A & B Discharge Planning Comments: CM met with patient's daughter to complete initial dc planning assessment. CM educated her on the CM role and verbal consent given by patient to complete assessment. Patient lives at home with her daughter who is her sole home health care coordinator. At discharge patient plans to return home and feels this is a safe discharge. CM discussed availability of home health, rehab services, and medical equipment. Merle, patient's daughter stated that she does everything for her mom. She was feeding herself 3 weeks ago. They have a wheelchair, lift and a 3 motor bed. We spoke about hospice care too, but she stated that she was going to think about and may have questions later. Merle denied known discharge needs at this time. CM will continue to follow and will assist as needed with dc plans/needs. Fish Processor: Yuridia Santiago DCPIA - Discharge Planning Initial Assessment Updated by [email or web address]: Yuridia Santiago on 05/03/20 2:05 pm * Is the patient Alert and Oriented? Yes * PCP RODOLFO SIMMONS * Pharmacy [facility] * Preadmission Environment Home with Family * ADLs Total Dependent * Equipment Other Wheelchair * Other Equipment LIFT 3 MOTOR BED * List name and contact numbers for known caregivers / representatives who currently or will assist patient after discharge: MERLE IBARRA ( DAUGHTER) [phone] * Verbal permission to speak to the caregivers and representatives has been obtained from the patient. N/A * Community resources currently utilized None * Additional services required to return to the preadmission environment? No * Can the patient safely return to the preadmission environment? Yes * Has this patient been hospitalized within the prior 30 days at any hospital? No Coverage Notice Reviewer: [id number] - Yuridia Santiago Notice Issued Date-Time: 05/06/2020 10:15 Notice Type: Patient Choice Letter Notice Delivered To: Family Member Relationship to Patient: Daughter [employer] Name: MERLE Delivery Method: HAND - Hand Delivered Renetta Days: Prior Verbal Notification: Recipient Understood Notice: Yes Recipient Signature: Yes Med Rec Note Co-signed by Attending: Coverage Notice Comment: JULIOCESAR CHIN Reviewer: [id number] - Yuridia Santiago Notice Issued Date-Time: 05/11/2020 12:25 Notice Type: IM Discharge Notice Notice Delivered To: Family Member Relationship to Patient: Daughter [employer] Name: merle Delivery Method: HAND - Hand Delivered Renetta Days: Prior Verbal Notification: Recipient Understood Notice: Yes Recipient Signature: Yes Med Rec Note Co-signed by Attending: Coverage Notice Comment: Last DP export: 05/11/20 11:35 a Patient Name: IRVING ANDERSON Page [phone] at 0650 All edits/amendments must be made on the electronic document DICTATION DATE: 05/12/2049 PUBLIC WORKS TECHNICIAN: CHELSI 05/12/20 0649 RPT#: [id number] DC DATE:05/11/20 STATUS: DIS IN [facility] [address] [place] [address] END OF REPORT
== END 2020-05-11 14:19 | disposition home health service (06) | DRG 640 ==
LOC: D.ER 22:54 → D.MS 05-03 03:08
PROVIDERS: Family Medicine; Surgery; ADMIT Family Medicine; ATTEND Family Medicine
PROC: 0DH63UZ Insertion of Feeding Device into Stomach, Percutaneous Approach (ICD-10-PCS; 2020-05-07)
PROC: 0DB78ZX Excision of Stomach, Pylorus, Via Natural or Artificial Opening Endoscopic, Diagnostic (ICD-10-PCS; principal; 2020-05-07 10:30)
DX: E86.0 Dehydration (principal); R40.2123 Coma scale, eyes open, to pain, at hospital admission; R40.2343 Coma scale, best motor response, flexion withdrawal, at hospital admission; R40.2223 Coma scale, best verbal response, incomprehensible words, at hospital admission; N39.0 Urinary tract infection, site not specified; F03.90 Unspecified dementia, unspecified severity, without behavioral disturbance, psychotic disturbance, mood disturbance, and anxiety; Z66 Do not resuscitate; K59.00 Constipation, unspecified; R13.10 Dysphagia, unspecified; E87.6 Hypokalemia